=== PATIENT | male | born 1945 | race Caucasian/White ===

== ENCOUNTER 2017-02-18 16:10 | Emergency (ER) | payer MEDICARE ==
[~2017-02-18] VITALS: Ht 180.3 cm; Wt 100.0 kg
[2017-02-18 16:15] VITALS: BP 156/89; PULSE 89; RESP 12; TEMP 98.5; O2SAT 98
[2017-02-18] MEDS ORDERED: TETANUS/DIPHTHERIA TOXOID ADULT 0.5 ML VIAL IM ONE (16:45)
[2017-02-18] MEDS ORDERED: LIDOCAINE HCL 1% 50 ML VIAL INFIL ONE (16:45)
--- NOTE | 2017-02-18 16:47 | PD ---
HPI Chief Complaint: Injury Time Seen by Provider: 16:36 Travel History International Travel<30 days: No Contact w/Intl Traveler<30days: No Traveled to known affect area: No History of Present Illness HPI 72-year-old male presents to emergency department with complaint of a laceration to the medial, plantar aspect of his right foot after stepping on a 2 x 4 while walking and it cutting his foot. Tetanus is not up-to-date. Denies paresthesias, loss of sensation, decreased range motion, decreased strength to the affected extremity. Not taking any medications to alleviate his symptoms. Has applied pressure and a bandage to control bleeding. Bleeding is controlled. Rates pain 3/10. He describes it as a throbbing sensation. Pain is aggravated with walking and palpation. Pain decreased while at rest. Has no other medical complaints. No known allergies. No other modifying factors or associated signs and symptoms. PFSH Past Medical History Cardiovascular Problems: Yes (HTN) Social History Tobacco Use: No Allergies-Medications (Allergen,Severity, Reaction): Coded Allergies: No Known Allergies (Unverified , 02/18/17) Reported Meds & Prescriptions Reported Meds & Active Scripts Active Ibuprofen 600 Mg Tab 600 Mg PO Q6H PRN Doxycycline Hyclate 100 Mg Cap 100 Mg PO BID 7 Days Review of Systems Except as stated in HPI: all other systems reviewed are Neg Physical Exam Narrative GENERAL: Well-nourished, well-developed elderly, male patient, in no acute distress SKIN: Warm and dry. Medial, plantar aspect of right foot with approximately 6 cm laceration in a V shape; bleeding controlled. Right lower cavity supplemented with 2+ pedal pulses and sensory intact without erythema or edema. HEAD: Atraumatic. Normocephalic. EYES: Pupils equal and round. No scleral icterus. No injection or drainage. ENT: Mucosa pink and moist. Airway patent. NECK: Trachea midline. CARDIOVASCULAR: Regular rate. RESPIRATORY: No accessory muscle use. GASTROINTESTINAL: Flat. MUSCULOSKELETAL: No obvious deformities. No clubbing. No cyanosis. No edema. NEUROLOGICAL: Awake and alert. Oriented 3. No obvious cranial nerve deficits. Motor grossly within normal limits. Normal speech. PSYCHIATRIC: Appropriate mood and affect; insight and judgment normal. Data Data Last Documented VS Vital Signs Date Time Temp Pulse Resp B/P (MAP) Pulse Ox O2 Delivery O2 Flow Rate FiO2 02/18/17 16:15 98.5 89 12 156/89 (111) 98 Orders Orders Tetanus/Diphtheria Tox Adult (Tetanus/Di (02/18/17 16:45) Lidocaine 1% Inj (50 Ml) (Xylocaine 1% I (02/18/17 16:45) Crutches (02/18/17 16:51) Ed Discharge Order (02/18/17 17:47) MDM Medical Decision Making Medical Screen Exam Complete: Yes Emergency Medical Condition: Yes Medical Record Reviewed: Yes Differential Diagnosis Laceration, contusion, abrasion Narrative Course 72-year-old male with a laceration to his right foot. Tetanus updated in the ER. Some excision of a laceration repair. [place]. Doxycycline and ibuprofen prescribed for home. Crutches provided for support. Instructed patient to follow-up in 10-14 days for suture removal. Instructed patient to follow up with primary care provider. Patient verbalizes understanding and agreement with treatment plan. Patient is medically cleared and stable for discharge. Discussed reasons to return to the emergency department. Patient agrees with treatment plan. The patients vital signs are stable and the patient is stable for outpatient follow-up and treatment. Patient discharged home, stable and in no acute distress. Procedures Procedure Narrative LACERATION LOCATION: Medial, plantar aspect of right foot LENGTH: 6 cm NUMBER OF STITCHES/BERE: 9 simple interrupted sutures REPAIR: The area of the laceration was prepped with Betadine and sterilely draped. The laceration was infiltrated with 1% lidocaine. The wound was copiously irrigated and explored without evidence of foreign body, tendon injury or neurovascular injury. The wound was closed using 4-0 Prolene. This was a single layer repair. A sterile dressing was applied. The patient was advised to keep the dressing clean and dry. Patient tolerated the procedure well. Diagnosis Primary Impression: Laceration of right foot Qualified Codes: S91.311A - Laceration without foreign body, right foot, initial encounter Referrals: [facility] Primary Care Physician Patient Instructions: Care For Your Stitches (ED), General Instructions, Laceration (GEN) Additional Instructions: Keep area clean and dry Limit right foot activity to decrease risk of sutures coming undone Crutches for support ibuprofen or Tylenol as directed and as needed for pain and inflammation Ice pack to area as needed to decrease pain Return to the emergency department or follow-up with primary care provider in 10 -14 days for suture removal Follow up with primary care provider within 2-4 days Return to the emergency department immediately with worsening of symptoms, particularly if reddened streaks up or down the affected extremity from the suture site, fever, numbness/tingling in the affected extremity, loss of sensation in the affected extremity, severe swelling of the affected Med/Other Pt SpecificInfo: Prescription(s) given Scripts Ibuprofen (Ibuprofen) 600 Mg Tab 600 MG PO Q6H Y for PAIN, #20 TAB 0 Refills Prov: Jessica Duff 02/18/17 Doxycycline Hyclate (Doxycycline Hyclate) 100 Mg Cap 100 MG PO BID for Infection for 7 Days, #14 CAP 0 Refills Prov: Jessica Duff 02/18/17 Disposition: 01 DISCHARGE HOME Condition: Stable Jessica Duff Feb 18, 2017 16:47
[2017-02-18] MEDS ORDERED: DOXY100C PO (16:51)
[2017-02-18] MEDS ORDERED: IBUP-232 PO (16:51)
== END 2017-02-18 18:01 | disposition home or self-care (01) ==
LOC: NEPK 16:10
DX: S91.311A Laceration without foreign body, right foot, initial encounter (principal); W45.8XXA Other foreign body or object entering through skin, initial encounter; Z23 Encounter for immunization
CPT/HCPCS: 12002; 90471; 90714; 99283; E0113